=== PATIENT | female | born 1955 | race Asian ===

== ENCOUNTER 2016-07-21 11:46 | Inpatient (IN) | payer SELFPAY ==
[2016-07-21 12:21] LABS: % BASOPHILS 0.5 % (0.0-2.0); % EOSINOPHILS 2.8 % (0.0-5.0); % LYMPHOCYTES 45.7 % (20.0-50.0); % MONOCYTES 5.1 % (2.0-10.0); % NEUTROPHILS 45.9 % (40.0-80.0); HEMATOCRIT 40.1 % (35.0-45.0); HEMOGLOBIN 13.5 gm/dL (11.7-15.5); MEAN CELL VOLUME 88.2 fl (81-100); MEAN CORPUSCULAR HEMOGLOBIN 29.8 pg (27.0-31.0); MEAN CORPUSCULAR HGB CONC 33.8 pg (28.0-36.0); NEUTROPHILE ABSOLUTE 5.4 Th/cmm (1.8-8.0); PLATELET COUNT 364 Th/cmm (150-400); RED BLOOD COUNT 4.55 Mil/cmm (3.80-5.10); RED CELL DISTRIBUTION WIDTH 11.3 % (11.5-20.0); WHITE BLOOD COUNT 11.7 Th/cmm (4.8-10.8)
--- NOTE | 2016-07-21 12:35 | ED Physician Chart ---
Chief Complaint/HPI - Patient Information Date Seen:: 07/21/16 Time Seen:: 12:29 Chief Complaint:: psych hold History of Present Illness:: brought in by police who found pt laying in someone's yard. police interview was wildly nonsensical w pt saying she was born today. Police put pt on hold and brought her here. pt is rambling constantly w nonstop speech only about 1/2 of which is at all intelligable to me and overall not much can be understood. She seems to be hungry but I cant get more out of her as to where she came from of any recent or old health hx. pt is alert and doesnt seem to have obv signs of trauma. Allergies:: Allergies Allergy/AdvReac Type Severity Reaction Status Date / Time No Known Allergies Allergy Verified 07/21/16 11:55 Vitals:: Vital Signs - 8 hr 07/21/16 11:55 Temp 98.2 F HR 101 RR 19 BP 178/92 O2 Sat % 94 Historian:: Patient Review of Systems - Review of Systems General/Constitutional: No fever, No chills, No weight loss, No weakness, No diaphoresis, No edema, No loss of appetite Skin: No skin lesions, No rash, No bruising Head: No headache, No light-headedness Eyes: No loss of vision, No pain, No diplopia ENT: No earache, No nasal drainage, No sore throat, No tinnitus Neck: No neck pain, No swelling, No thyromegaly, No stiffness, No mass noted Cardio Vascular: No chest pain, No palpitations, No PND, No orthopnea, No edema Pulmonary: No SOB, No cough, No sputum, No wheezing GI: No nausea, No vomiting, No diarrhea, No pain, No melena, No hematochezia, No constipation, No hematemesis G/U: No dysuria, No frequency, No hematuria Musculoskeletal: No bone or joint pain, No back pain, No muscle pain Endocrine: No polyuria, No polydipsia Psychiatric: Prior psych history (??), No depression, No anxiety, No suicidal ideation Hematopoietic: No bruising, No lymphadenopathy Allergic/Immuno: No urticaria, No angioedema Neurological: No syncope, No focal symptoms, No weakness, No paresthesia, No headache, No seizure, No dizziness, Confusion, No vertigo Past Medical History - Past Medical History Past Medical History: Other (unknown hx) Social History: Homeless (?) Medication: None (?) Family Medical History - Family Member Mother History Unknown: Yes Physical Exam - Physical Examination General/Constitutional: Awake, Well-developed, well-nourished, Alert, No distress, Non-toxic appearing, Ambulatory Other Gen/Cons comments:: pt is awake /alert and talking...however much of speech is unintelligible and her nonstop pressured speech is impossible to be directed toward any 1 topic. pt appears likely is in manic phase of psych disorder. wn/wh. Head: Atraumatic Eyes: Lids, conjuctiva normal, PERRL, EOMI Skin: Nl inspection, No rash, No skin lesions, No ecchymosis, Well hydrated, No lymphadenopathy ENMT: External ears, nose nl, Nasal exam nl, Lips, teeth, gums nl Neck: Nontender, Full ROM w/o pain, No JVD, No nuchal rigidity, No bruit, No mass, No stridor Respiratory: Nl effort/Exclusion, Clear to Auscultation, No Wheeze/Rhonchi/Rales Cardio Vascular: RRR, No murmur, gallop, rubs, NL S1 S2 GI: No tenderness/rebounding/guarding, No organomegaly, No hernia, Normal BS's, Nondistended, No mass/bruits, No McBurney tenderness : No CVA tenderness Extremities: No tenderness or effusion, Full ROM, normal strength in all extremities, No edema, Normal digits & nails Neuro/Psych: Alert/oriented, DTR's symmetric, Normal sensory exam, Normal motor strength, Mood normal, Normal gait, No focal deficits Misc: normal gait, Normal back, No paraspinal tenderness Labs/Radiology/EKG Results - Lab Results Results: Laboratory Tests 07/21/16 07/21/16 07/21/16 12:13 12:13 12:13 WBC 11.7 H RBC 4.55 Hgb 13.5 Hct 40.1 MCV 88.2 MCH 29.8 MCHC Differential 33.8 RDW 11.3 L Plt Count 364 MPV 8.0 Neutrophils % 45.9 Lymphocytes % 45.7 Monocytes % 5.1 Eosinophils % 2.8 Basophils % 0.5 Sodium 137 Potassium 3.4 L Chloride 105 Carbon Dioxide 26.3 Anion Gap 9.1 BUN 25 Creatinine 0.7 Est GFR ( Amer) > 60.0 Est GFR (Non-Af Amer) > 60.0 BUN/Creatinine Ratio 35.7 Glucose 119 H Calcium 10.2 Total Bilirubin 0.3 AST 21 ALT 20 Alkaline Phosphatase 55 Total Protein 8.3 Albumin 4.5 Globulin 3.8 Albumin/Globulin Ratio 1.2 Triglycerides 152 H Cholesterol 148 LDL Cholesterol Direct 61 L HDL Cholesterol 63 TSH 1.22 Salicylates < 25.0 L Acetaminophen < 10.0 L Ethyl Alcohol < 10 ED Septic Shock - . Is Septic Shock (SBP<90, OR Lactate>4 mmol\L) present?: No - <6hrs of presentation: Vital Signs: Vital Signs - 8 hr 07/21/16 11:55 Temp 98.2 F HR 101 RR 19 BP 178/92 O2 Sat % 94 Reassessment (Disposition) - Reassessment Reassessment:: Pt had been medically cleared as of 1pm. However disposition is difficult. Awaiting admin plan for dispo as we do not have pt ID /ins info etc... Pt eloped from ED at 2pm. police notified and found pt and returned her to ed at 2:40pm. Now has a bedside sitter. re-exam pt appears same /stable/ no obv intervening injury or intoxication. behavior is same. Reassessment Condition:: Unchanged - Diagnosis Diagnosis:: 1 acute psychosis 2 on psych hold for mentally disabled and unable to care for self - Patient Disposition Admitted to:: [facility] Condition at Disposition:: Unchanged ED Discharge Plan - Patient Disposition Admit/Discharge/Transfer: Other Care w/in this hosp
[2016-07-21 12:38] LABS: ACETAMINOPHEN < 10.0 ug/mL (10.0-30.0); ALB/GLOB RATIO 1.2 (1.0-1.8); ALKALINE PHOSPHATASE 55 U/L (34-104); ANION GAP 9.1 (7.0-16.0); BILIRUBIN,TOTAL 0.3 mg/dL (0.3-1.0); BUN - UREA NITROGEN 25 mg/dL (7-25); BUN/CREATININE RATIO 35.7; CALCIUM SERUM 10.2 mg/dL (8.6-10.3); CARBON DIOXIDE 26.3 mEq/L (21.0-31.0); CHLORIDE 105 mEq/L (98-107); CHOLESTEROL 148 mg/dL (<200); CREATININE - SERUM 0.7 mg/dL (0.6-1.2); GLUCOSE 119 mg/dL (70-105); POTASSIUM SERUM 3.4 mEq/L (3.5-5.1); SGOT 21 U/L (13-39); SGPT/ALT 20 U/L (7-52); SODIUM SERUM 137 mEq/L (136-145); TRIGLYCERIDES 152 mg/dL (<150)
[2016-07-21] MEDS ORDERED: Haloperidol Lactate 5 mg/mL 1mL Vial ONE (13:42)
[2016-07-21] MEDS ORDERED: Haloperidol Lactate 5 mg/mL 1mL Vial IM STA (13:44)
[2016-07-21 17:34] LABS: URINE BILIRUBIN NEGATIVE (NEGATIVE); URINE BLOOD TRACE (NEGATIVE); URINE COLOR STRAW; URINE GLUCOSE (UA) 100 mg/dL (NEGATIVE); URINE KETONE NEGATIVE (NEGATIVE); URINE PH 6.5; URINE PROTEIN NEGATIVE (NEGATIVE); URINE UROBILINOGEN 0.2 E.U./dL (0.2 - 1.0)
[2016-07-21 17:35] LABS: URINE BACTERIA NONE SEEN /hpf (NONE SEEN); URINE EPITHELIAL CELLS NONE SEEN /lpf (FEW); URINE RBC 0-2 /hpf (0-5); URINE WBC NONE SEEN /hpf (0-5)
[2016-07-21 17:42] LABS: AMPHETAMINE URINE NEGATIVE (NEGATIVE); BARBITURATES URINE NEGATIVE (NEGATIVE); METHADONE URINE NEGATIVE (NEGATIVE)
[2016-07-21] MEDS ORDERED: Haloperidol Lactate 5 mg/mL 1mL Vial IM PRN (18:10)
[2016-07-21] MEDS ORDERED: Maalox 30 mL Cup PO PRN (18:13)
[2016-07-21 20:46] VITALS: BP 171/75
[2016-07-22] MEDS ORDERED: Potassium Chloride 20 mEq ER Tab PO ONE (08:45)
[2016-07-22] MEDS: Multivitamin Tab PO SCH (10:00)
--- NOTE | 2016-07-22 10:30 | History & Physical ---
ADMIT DATE: 07/21/2016 CHIEF COMPLAINT: Psychosis. HISTORY OF PRESENT ILLNESS: This is a 56-year-old ____ female who presents to [facility] ER, brought in by police. The patient was found lying in someone's yard. While being interviewed, the police states that the patient was unable to provide any sensible speech with constant rambling. She was subsequently brought to the hospital for further evaluation and treatment. Initial lab work revealed a slightly elevated white count of 11.7, hemoglobin 13.5, hematocrit 40.1, platelets was 364. Sodium was 137, potassium 3.4, chloride 105, bicarbonate 26, BUN 25, creatinine 0.7, glucose was 119, AST 21, ALT 20, alk phos 55. Urinalysis showed 100 glucose noted in the urine. Salicylic acid was less than 25. Acetaminophen level was less than 10. Alcohol level was less than 10. UDS was negative. RPR was nonreactive. PAST MEDICAL HISTORY: Unknown. FAMILY HISTORY: Noncontributory. SOCIAL HISTORY: The patient is homeless. ALLERGIES: No known drug allergies. REVIEW OF SYSTEMS: Unable to obtain due to the patient's current condition. PHYSICAL EXAMINATION: VITAL SIGNS: Temperature 98.0, pulse 86, blood pressure ____/75, respirations 20. GENERAL: This is a 56-year-old male, well-developed, well nourished, appears stated age. HEENT: Normocephalic, atraumatic. Pupils are round, react to light and accommodation. Extraocular muscles intact. Ears: TMs intact. NECK: Supple. Good range of motion. No thyromegaly. No lymphadenopathy. CARDIOVASCULAR: Regular rate and rhythm. No murmurs, rubs or clicks. LUNGS: Clear to auscultation. No rales, rhonchi or wheezing. ABDOMEN: Soft, nontender, nondistended. Bowel sounds are active in all 4 quadrants. No rebound tenderness, rigidity or guarding. EXTREMITIES: No clubbing, cyanosis, edema. ____ intact. ASSESSMENT: 1. Psychosis. 2. Hypokalemia. 3. Hypertension. PLAN: The patient to be admitted to [facility] for further evaluation and treatment. We will start patient on losartan 50 mg once daily. We will also order K-Dur 40 mEq x 1 ____. We will repeat lab work for tomorrow. JOB# [id number]
[2016-07-22] MEDS ORDERED: Potassium Chloride Elixir 20 mEq /15 mL UDC PO ONE (11:28)
--- NOTE | 2016-07-22 14:42 | History & Physical ---
ADMIT DATE: 07/21/2016 IDENTIFYING INFORMATION: The patient is a 56-year-old female. CHIEF COMPLAINT: "I don't know." HISTORY OF PRESENT ILLNESS: The patient was admitted on a hold on the ____ grave disability. The patient was evaluated by ____ staff and the patient was unaware to provide her name, date of or where she lives. She reports she was only 1-day-old and believes that she may have been in [place]. She said she had breakfast this morning, but she had no food in her possession. When I talked to the patient and asked what is her name, said Leeann Larose. The patient has been acting paranoid, traumatized. The patient is not sure what the date, where she is, why she is here and I explained to her that she is in [facility]. She is not sure of the date or her age. When asked if she is or any personal information, was unable to provide. She is not sure if she is or have any children. PAST PSYCHIATRIC HISTORY: Unobtainable. The patient is a very poor historian. MEDICAL HISTORY: Deferred to the medical doctor. ALLERGIES: She has no known drug allergies. MEDICATIONS: Has been on Haldol as needed that was prescribed by Dr. Santana. The patient has been on medication for blood pressure, multivitamin, potassium, Ambien and lorazepam as needed. FAMILY AND SOCIAL HISTORY: Unable to give me any information, does not know anything to any question asked ____. MENTAL STATUS EXAMINATION: The patient is appropriately dressed in hospital gown, but she looked disheveled. Her affect is constricted. Her thoughts are fragmented, unable to tell me her age, date of , where she is, why she is here. I do have her date of on her face sheet, but she was unable to repeat it to me. She has been acting paranoid, unable to provide for safety, unable to participate in meaningful conversation. Her long and short term memory is poor. Insight and judgment is impaired. IMPRESSION: AXIS I: Psychosis, not otherwise specified, also rule out dementia or cognitive disorder, not otherwise specified. MEDICAL DIAGNOSES: Hypokalemia, hypertension, increased white cell count. Her assets, she is accepting treatment. Negative poor coping skills. INITIAL TREATMENT PLAN: The patient will be started on Risperdal. We will do group therapy, milieu therapy, individual therapy. We will also work on placement. ESTIMATED LENGTH OF STAY: 5-10 days. DISCHARGE CRITERIA: Decrease in psychosis with a safe place to go to after discharge ____. JOB# [id number]
[2016-07-23] MEDS: Multivitamin Tab PO SCH (08:38)
--- NOTE | 2016-07-23 20:26 | Admit Criteria Form ---
Admit Criteria Forms - Admit Criteria Diagnosis: PSYCHIATRIC DISORDERS (Place 'X' for any and all applicable criteria): Ongoing inpatient care may be needed for 1 or more of the following(1)(2)(3)(4)( 6)(7)(8): [ ]I. Danger to self or others not manageable at lower level of care. [ ]II. Grave disability (eg, inability to perform self care necessary at lower level of care) [ ]III. Agitation or inappropriate behavior interfering with care for primary condition (eg, attempting to discontinue lines or drains prematurely, unable to cooperate with respiratory care) [X ]IV. Severe disability or disorder indicated by ALL of the following: [X ]a) Severe behavioral health disorder-related symptoms or condition indicated by 1 or more of the following: [X ]i) Severe problem with cognition, memory, judgment, or impulse control [ ]ii) Severe clinical manifestations (eg, hallucinations, delusions, other acute psychotic symptoms, cristal, extreme agitation or anxiety) [X ]b) Patient management at lower level of care is not feasible until acute intervention or modification is initiated. Extended stay beyond goal length of stay for the primary condition may be needed until ALLof the following are present(1)(2)(3)(4)(7)73)(23): [ ]a) Danger to self or others is absent or manageable at lower level of care [ ]b) Behavior crisis management, including physical or chemical restraints, is required and is not available at a lower level of care. [ ]c) Behavioral symptoms (e.g., agitation, somnolence, inappropriate behavior) are present, and are not manageable at a lower level of care. [ ]d) Patient cannot understand follow-up treatment and crisis plan. [ ]e) Provider and supports are sufficiently available at lower level of care. [ ]f) Patient can participate (e.g., verify absence of plan for harm) and is in needed of monitoring. The original [facility] content created by [facility] has been revised. The portions of the content which have been revised are identified through the use of italic text or in bold, and [facility] has neither reviewed nor approved the modified material. All other unmodified content is copyright [facility]. Please see references footnoted in the original [facility] edition 2017 Admit Criteria Met?: Yes
--- NOTE | 2016-07-24 00:40 | Progress Notes ---
DATE: 07/23/2016 Case was discussed with staff of the patient, reviewed records. The patient continues to be confused, unable to tell me her date of , unable to tell me the date, unable to participate. She does not know her birthdate, does not know where she is, why she is here. She is unpredictable, impulsive, needing redirection. I did initiate on her Risperdal. She is still unpredictable, impulsive. Unable to take care of her ADLs. Does not know where she is from or where she lived. No side effects with the medication, no sedation, no nausea. We will continue to work with the patient in group therapy, milieu therapy, and adjust medication as needed. [facility]# [id number]
[2016-07-24] MEDS: Multivitamin Tab PO SCH ×2 (08:50→08:54)
--- NOTE | 2016-07-24 21:38 | Progress Notes ---
DATE: 07/24/2016 COVERING FOR: Dr. Shrestha. SUBJECTIVE: Chart reviewed and the patient interviewed. Also discussed the patient's condition with the staff and reviewed records and labs. The patient is still confused and she still does not know her name or where she lives. The patient also is still restless and she is still agitated. The patient also is still unable to provide any safe plan for self-care. The patient also is still irritable and gets angry and agitated easily. Otherwise, the patient continued to take the Risperdal with no side effects. ASSESSMENT: The patient is still confused and considered to be gravely disabled and dangerous to herself. TREATMENT PLAN: We will place the patient on 5250 hold for grave disability and danger to self. Also, we will continue to monitor her behavior and continue to try to get more information from the patient in regards to her living condition in her living situation. Also, we will increase Risperdal to 1 mg twice a day and we will continue to follow up. [facility]# [id number]
[2016-07-25] MEDS: Multivitamin Tab PO SCH (09:05)
--- NOTE | 2016-07-25 22:03 | Progress Notes ---
DATE: 07/25/2016 SUBJECTIVE: Chart reviewed and the patient interviewed. Also discussed the patient's condition with the staff and reviewed records and labs. The patient is still rambling and she is still unable to carry on coherent conversation. When I tried to ask the patient about her name, she kept mentioning 2 names, "____." She is still confused, disheveled and unable to carry on any coherent conversation. The patient also is still unable to tell me about her date. On the other hand, the patient seems to be slightly calmer and slightly less agitated and less irritable since I increased Risperdal yesterday. ASSESSMENT: The patient is still psychotic and considered to be gravely disabled. TREATMENT PLAN: We will continue Risperdal same dose. Also, continue to work on her ineffective coping and her irritability and psychosis. JOB# [id number]
[2016-07-26] MEDS: Multivitamin Tab PO SCH (09:40)
--- NOTE | 2016-07-26 23:09 | Progress Notes ---
DATE: 07/26/2016 Case was discussed with staff of the patient, reviewed records. She has been able to tell her name; however, she reports she is homeless, confused, unpredictable, impulsive, continues to have poor insight, continues to unable to make safe plan for self-care. Dr. Luong increased Risperdal to 1 mg twice a day and so far no side effects, no sedation, no nausea, no extrapyramidal symptoms. We will continue to work with the patient in group, milieu therapy, and adjust the medication as needed. [facility]# [id number]
[2016-07-27] MEDS: Multivitamin Tab PO SCH (17:19)
--- NOTE | 2016-07-28 02:08 | Progress Notes ---
DATE: 07/27/2016 Case was discussed with staff of the patient, reviewed records. The patient continues to be confused, unpredictable, impulsive. She has been taking her medications and sometimes refusing it. She refused this morning, but took it yesterday. She still unpredictable, impulsive, unable to make safe plan for self-care. The staff is trying to find out more about her and she is tolerating increase in Risperdal with no side effects, no sedation, no nausea, and no extrapyramidal symptoms. We will continue to work with the patient in group therapy, milieu therapy, and adjust the medication as needed JOB# [id number]
[2016-07-28] MEDS: Multivitamin Tab PO SCH (08:18)
[2016-07-28] MEDS: Gentamicin 0.3% Ophth Soln 5mL Bottle EACH EYE SCH ×3 (09:23→20:44)
--- NOTE | 2016-07-28 21:44 | Progress Notes ---
DATE: 07/28/2016 SUBJECTIVE: Case was discussed with staff of the patient. The patient has been thinking about her medication. She did not take it yesterday morning, but she did take it today. She is sleeping better. She is eating better. We are still trying to find out where she is coming from, what is her name, if she has any family, what kind of placement we can do for her, and she has been, so far, easy to redirect needing redirection. No side effects of medication, no sedation, no nausea, no extrapyramidal symptoms. We will continue to work with the patient in group therapy, milieu therapy, adjust medication as needed. JOB# [id number]
[2016-07-29] MEDS: Multivitamin Tab PO SCH ×2 (08:28→08:33)
[2016-07-29] MEDS: Gentamicin 0.3% Ophth Soln 5mL Bottle EACH EYE SCH ×4 (08:29→21:00)
[2016-07-29] MEDS ORDERED: Haloperidol Lactate 5 mg/mL 1mL Vial IM ONE (11:26)
--- NOTE | 2016-07-30 02:02 | Progress Notes ---
DATE: 07/29/2016 SUBJECTIVE: That is the new name for Leeann Larose. Staff were able to find her. Apparently she has been arrested ____ police. Today, she was very agitated, very paranoid. Continues to be unpredictable, impulsive. She was yelling and screaming. She was speaking Telugu, but her speech was hard to understand because of her agitation, so if she continues to refuse we may have to [place] her, but she had to be medicated today because of extreme agitation, yelling and screaming, very poor insight. Unable to make safe plan for self-care and is homeless. We will continue to work with the patient in group therapy, milieu therapy, adjust medication as needed. JOB# [id number]
[2016-07-30] MEDS: Gentamicin 0.3% Ophth Soln 5mL Bottle EACH EYE SCH ×3 (09:18→20:51)
[2016-07-30] MEDS: Multivitamin Tab PO SCH (09:19)
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
[2016-07-31] MEDS: Multivitamin Tab PO SCH (08:11)
[2016-07-31] MEDS: Gentamicin 0.3% Ophth Soln 5mL Bottle EACH EYE SCH ×3 (08:19→20:29)
--- NOTE | 2016-07-31 19:59 | Progress Notes ---
DATE: 07/31/2016 SUBJECTIVE: The patient was seen, chart reviewed, discussed with staff. The patient is currently on a hold for grave disability. The patient was making allegations, iebelieving she was in [place], having visual hallucinations, saying her name was different that what it is; confused, disoriented, talking about grasshoppers, unable to really tell me basic plans for food, clothing, and fci. Staff concerned, she remains quite symptomatic. ASSESSMENT: The patient remains delusional, bizarre, nonsensical, not safe for a lower level of care. PLAN: Continue to monitor. The patient is currently on Risperdal 1 mg twice daily. We will increase the dose to 1.5 mg twice daily. No side effects noted at this time. [facility]# [id number] MTDD
[2016-08-01] MEDS: Multivitamin Tab PO SCH (08:41)
[2016-08-01] MEDS: Gentamicin 0.3% Ophth Soln 5mL Bottle EACH EYE SCH ×3 (08:41→21:21)
--- NOTE | 2016-08-01 22:00 | Progress Notes ---
DATE: 08/01/2016 SUBJECTIVE: The patient is seen, chart reviewed, and discussed with staff. The patient remains impulsive, unpredictable, still gets agitated at times, at times refusing medications, still with yelling and screaming episodes, talking about grasshoppers and the different topics that have nothing to do with the interview, suspicious, withdrawn and difficult to understand at times, she tells me she is speaking [place]ese when I ask her __what language she is speaking but__ I am not able to understand there. Sleeping fairly well, eating with prompting, ADLs with prompting. The patient remains gravely disabled. ASSESSMENT: The patient remains agitated, suspicious, still with screaming and yelling episodes wandering and intrusive. There are still concerns about medication compliance. PLAN: We will continue to monitor given the severity of the patient's current symptoms, she is not safe for discharge. We will continue Risperdal at the current dose given recent dose increase. [facility]# [id number] [facility]Matt
[2016-08-02] MEDS: Gentamicin 0.3% Ophth Soln 5mL Bottle EACH EYE SCH ×3 (09:16→21:13)
[2016-08-02] MEDS: Multivitamin Tab PO SCH (09:17)
--- NOTE | 2016-08-03 01:44 | Progress Notes ---
DATE: 08/02/2016 Case was discussed with staff of the patient, reviewed records. The patient continues to be confused, irritable, continues to have poor insight. Continues to be unable to make safe plan for self-care. Continues to need redirection, easily agitated and we are trying to work on placement for this patient and also get insurance, so she could get medical treatment. ____ increase the dose of ____, Risperdal 1.5 mg twice a day. She has been compliant with the medication with no side effects, no sedation, no nausea, no extrapyramidal symptoms. She has a urinalysis that was positive for sugar and urine drug screen is negative and her chemistry panel showed low potassium and the LDL cholesterol is low and TSH within normal range. CBC with high white cells and serum triglycerides is high at 152, which is minimal elevation and we will continue to work with the patient in group therapy, milieu therapy, adjust the medication as needed. We will get the medical doctor to evaluate her abnormal lab work. We will continue the patient in group therapy, milieu therapy, adjust the medication as needed. JOB# [id number]
[2016-08-03] MEDS: Multivitamin Tab PO SCH (08:15)
[2016-08-03] MEDS: Gentamicin 0.3% Ophth Soln 5mL Bottle EACH EYE SCH ×5 (08:17→20:55)
[2016-08-04] MEDS: Gentamicin 0.3% Ophth Soln 5mL Bottle EACH EYE SCH ×3 (09:16→21:13)
[2016-08-04] MEDS: Multivitamin Tab PO SCH (09:16)
[2016-08-05] MEDS: Multivitamin Tab PO SCH (08:18)
[2016-08-05] MEDS: Gentamicin 0.3% Ophth Soln 5mL Bottle EACH EYE SCH ×3 (08:20→21:15)
[2016-08-06] MEDS: Multivitamin Tab PO SCH (09:27)
[2016-08-06] MEDS: Gentamicin 0.3% Ophth Soln 5mL Bottle EACH EYE SCH ×3 (09:27→21:17)
[2016-08-07] MEDS: Gentamicin 0.3% Ophth Soln 5mL Bottle EACH EYE SCH ×3 (08:41→21:18)
[2016-08-07] MEDS: Multivitamin Tab PO SCH (08:42)
[2016-08-08] MEDS: Gentamicin 0.3% Ophth Soln 5mL Bottle EACH EYE SCH ×3 (08:58→20:47)
[2016-08-08] MEDS: Multivitamin Tab PO SCH (08:58)
[2016-08-09] MEDS: Multivitamin Tab PO SCH (08:20)
[2016-08-09] MEDS: Gentamicin 0.3% Ophth Soln 5mL Bottle EACH EYE SCH ×3 (08:25→21:54)
[2016-08-10] MEDS: Multivitamin Tab PO SCH (08:51)
[2016-08-10] MEDS: Gentamicin 0.3% Ophth Soln 5mL Bottle EACH EYE SCH ×3 (08:53→20:31)
[2016-08-11] MEDS: Gentamicin 0.3% Ophth Soln 5mL Bottle EACH EYE SCH ×2 (08:42→14:13)
[2016-08-11] MEDS: Multivitamin Tab PO SCH (08:42)
[2016-08-12] MEDS: Multivitamin Tab PO SCH (08:44)
[2016-08-13] MEDS: Multivitamin Tab PO SCH (09:42)
[2016-08-14] MEDS: Multivitamin Tab PO SCH (08:24)
[2016-08-15] MEDS: Multivitamin Tab PO SCH (08:45)
[2016-08-16] MEDS: Multivitamin Tab PO SCH (08:22)
[2016-08-17] MEDS: Multivitamin Tab PO SCH (08:47)
[2016-08-18] MEDS: Multivitamin Tab PO SCH (08:14)
--- NOTE | 2016-08-27 20:21 | Discharge Summary ---
DATE OF DISCHARGE: 08/18/2016 IDENTIFYING INFORMATION: The patient is a 60-year-old female. CHIEF COMPLAINT: "I don't know." HISTORY OF PRESENT ILLNESS: The patient came to the hospital, was very confused, did not even know her name or social security number. She was unable to give any information. She believes she may have been in [place]. She said she had breakfast this morning, but she has no food in her possession. The patient believes her name Leeann Larose at the beginning. She was paranoid, traumatized, unable to take care of herself. COURSE IN THE HOSPITAL: The patient also had hypokalemia, hypertension, white cell count was increased. The patient was started on Risperdal. At the beginning, she was responding to internal stimuli, confused and agitated, but progressively she got better. Later was able to find out who she is and we tried to place her in a half-way, but that did not come through, so she ended up having no placement other than [facility]. She improved. She was compliant with the medication. She was able to take care of herself and also she managed herself ____. So she knew how to take care of herself and managed herself. So, she showed lots of progress, so we felt she could be discharged to a lesser level of care. She was on Cogentin 0.5 mg twice a day, Haldol, she was on Cozaar, multivitamin. So, the patient ____ twice a day. FINAL DIAGNOSES: AXIS I: Psychosis, not otherwise specified, dementia. MEDICAL DIAGNOSES: Hypokalemia, hypertension. The patient was sent to a [facility]. No place was willing to take her. The patient will follow up with the psychiatrist and primary care physician. EXPECTED OUTCOME: Stable if the patient complies with the above. JOB# [id number]
== END 2016-08-18 12:15 | disposition short-term general hospital (02) | DRG 885 ==
LOC: ER 11:46 → GERO 19:40 → EDBD 19:40
PROVIDERS: ADMIT Psychiatry & Neurology Psychiatry; ATTEND Psychiatry & Neurology Psychiatry
DX: F29 Unspecified psychosis not due to a substance or known physiological condition (principal); I10 Essential (primary) hypertension; E87.6 Hypokalemia; Z59.0 Homelessness
CPT/HCPCS: 36415-UA; 80053-TC; 80061-TC; 80307; 80320-TC; 80329-TC; 81001-TC; 84443-TC; 85025-TC; 86592-TC; 90899; G0410; J1200; J1630; Z7610